=== PATIENT | male | born 1945 | race Caucasian/White ===

== ENCOUNTER 2020-01-17 08:00 | Outpatient (CLI) | payer MEDICARE ==
--- NOTE | 2020-01-17 09:03 | XRAY Report ---
PROCEDURE: Foot 3 View RT INDICATIONS: RIGHT FOOT PAIN TECHNIQUE: 3 views of the foot were acquired. COMPARISON: None FINDINGS: Bones: No fractures or dislocations. No suspicious bony lesions. Mild osteoarthritis distal inner phalangeal joints second and third digit. Accessory ossicle adjacent to the calcaneocuboid articulati on incidentally noted. Soft tissues: No tibiotalar joint effusion. Achilles tendon appears normal. IMPRESSION: Source of foot pain is not seen. 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 Reviewed by: Doug Menjivar MD on 01/17/2020 9:02 AM PDT Approved by: Doug Menjivar MD on 01/17/2020 9:02 AM PDT Station ID: [id number]
== END 2020-01-17 23:59 | disposition home or self-care (01) ==
LOC: DI.S 08:00
PROVIDERS: ATTEND Physician Assistant
DX: M19.071 Primary osteoarthritis, right ankle and foot (principal)